=== PATIENT | female | born 1935 | race Caucasian/White ===

== ENCOUNTER → 2017-08-30 | Outpatient (CLI) | payer OTHER | LOC: HYPER 07-30 07:56 | DX: T81.31XA Disruption of external operation (surgical) wound, not elsewhere classified, initial encounter (principal); I10 Essential (primary) hypertension; I48.91 Unspecified atrial fibrillation; I87.2 Venous insufficiency (chronic) (peripheral); I74.9 Embolism and thrombosis of unspecified artery; L72.3 Sebaceous cyst; E03.9 Hypothyroidism, unspecified; L02.818 Cutaneous abscess of other sites; I89.0 Lymphedema, not elsewhere classified; L84 Corns and callosities; D64.9 Anemia, unspecified; M81.0 Age-related osteoporosis without current pathological fracture; K21.9 Gastro-esophageal reflux disease without esophagitis; M19.90 Unspecified osteoarthritis, unspecified site; M10.9 Gout, unspecified; Z79.01 Long term (current) use of anticoagulants; Y92.89 Other specified places as the place of occurrence of the external cause; Y83.8 Other surgical procedures as the cause of abnormal reaction of the patient, or of later complication, without mention of misadventure at the time of the procedure ==

== ENCOUNTER → 2017-10-11 | Outpatient (CLI) | payer OTHER | LOC: HYPER 07:02 | DX: T81.31XD Disruption of external operation (surgical) wound, not elsewhere classified, subsequent encounter (principal); L72.3 Sebaceous cyst; L73.2 Hidradenitis suppurativa; I89.0 Lymphedema, not elsewhere classified; I74.9 Embolism and thrombosis of unspecified artery; I87.2 Venous insufficiency (chronic) (peripheral); L84 Corns and callosities; E03.9 Hypothyroidism, unspecified; M81.0 Age-related osteoporosis without current pathological fracture; M10.9 Gout, unspecified; I10 Essential (primary) hypertension; I48.91 Unspecified atrial fibrillation; M19.90 Unspecified osteoarthritis, unspecified site; K21.9 Gastro-esophageal reflux disease without esophagitis; D64.9 Anemia, unspecified; F41.9 Anxiety disorder, unspecified; Z79.01 Long term (current) use of anticoagulants; Y83.8 Other surgical procedures as the cause of abnormal reaction of the patient, or of later complication, without mention of misadventure at the time of the procedure ==

== ENCOUNTER → 2017-11-26 | Outpatient (CLI) | payer OTHER | LOC: HYPER 07:02 | DX: T81.31XD Disruption of external operation (surgical) wound, not elsewhere classified, subsequent encounter (principal); L73.2 Hidradenitis suppurativa; L84 Corns and callosities; D64.9 Anemia, unspecified; E03.9 Hypothyroidism, unspecified; G47.33 Obstructive sleep apnea (adult) (pediatric); H91.90 Unspecified hearing loss, unspecified ear; I89.0 Lymphedema, not elsewhere classified; I74.9 Embolism and thrombosis of unspecified artery; I87.2 Venous insufficiency (chronic) (peripheral); I10 Essential (primary) hypertension; I48.91 Unspecified atrial fibrillation; K21.9 Gastro-esophageal reflux disease without esophagitis; M81.0 Age-related osteoporosis without current pathological fracture; M19.90 Unspecified osteoarthritis, unspecified site; M10.9 Gout, unspecified; F41.9 Anxiety disorder, unspecified; Z89.429 Acquired absence of other toe(s), unspecified side; Z85.42 Personal history of malignant neoplasm of other parts of uterus; Z79.01 Long term (current) use of anticoagulants; Y83.8 Other surgical procedures as the cause of abnormal reaction of the patient, or of later complication, without mention of misadventure at the time of the procedure ==

== ENCOUNTER → 2017-12-18 | Outpatient (CLI) | payer OTHER | LOC: HYPER 06:53 | DX: T81.31XD Disruption of external operation (surgical) wound, not elsewhere classified, subsequent encounter (principal); L73.2 Hidradenitis suppurativa; D64.9 Anemia, unspecified; E03.9 Hypothyroidism, unspecified; G47.33 Obstructive sleep apnea (adult) (pediatric); H91.90 Unspecified hearing loss, unspecified ear; I89.0 Lymphedema, not elsewhere classified; I74.9 Embolism and thrombosis of unspecified artery; I48.91 Unspecified atrial fibrillation; I10 Essential (primary) hypertension; I87.2 Venous insufficiency (chronic) (peripheral); K21.9 Gastro-esophageal reflux disease without esophagitis; L84 Corns and callosities; M19.90 Unspecified osteoarthritis, unspecified site; M10.9 Gout, unspecified; M81.0 Age-related osteoporosis without current pathological fracture; F41.9 Anxiety disorder, unspecified; Z79.01 Long term (current) use of anticoagulants; Z89.429 Acquired absence of other toe(s), unspecified side; Y83.8 Other surgical procedures as the cause of abnormal reaction of the patient, or of later complication, without mention of misadventure at the time of the procedure ==

== ENCOUNTER → 2018-01-15 | Outpatient (CLI) | payer OTHER | LOC: HYPER 06:39 | DX: T81.31XD Disruption of external operation (surgical) wound, not elsewhere classified, subsequent encounter (principal); L72.3 Sebaceous cyst; L84 Corns and callosities; L73.2 Hidradenitis suppurativa; D64.9 Anemia, unspecified; E03.9 Hypothyroidism, unspecified; G47.33 Obstructive sleep apnea (adult) (pediatric); I89.0 Lymphedema, not elsewhere classified; I74.9 Embolism and thrombosis of unspecified artery; I48.91 Unspecified atrial fibrillation; I10 Essential (primary) hypertension; I87.2 Venous insufficiency (chronic) (peripheral); K21.9 Gastro-esophageal reflux disease without esophagitis; M81.0 Age-related osteoporosis without current pathological fracture; M19.90 Unspecified osteoarthritis, unspecified site; M10.9 Gout, unspecified; F41.9 Anxiety disorder, unspecified; Z89.429 Acquired absence of other toe(s), unspecified side; Z79.01 Long term (current) use of anticoagulants; Y83.8 Other surgical procedures as the cause of abnormal reaction of the patient, or of later complication, without mention of misadventure at the time of the procedure ==

== ENCOUNTER → 2018-03-04 | Outpatient (CLI) | payer OTHER | LOC: HYPER 02-14 06:54 | DX: T81.31XA Disruption of external operation (surgical) wound, not elsewhere classified, initial encounter (principal); R21 Rash and other nonspecific skin eruption; L02.818 Cutaneous abscess of other sites; L73.2 Hidradenitis suppurativa; L84 Corns and callosities; L72.3 Sebaceous cyst; D64.9 Anemia, unspecified; E03.9 Hypothyroidism, unspecified; G89.18 Other acute postprocedural pain; G47.33 Obstructive sleep apnea (adult) (pediatric); I89.0 Lymphedema, not elsewhere classified; I74.9 Embolism and thrombosis of unspecified artery; I87.2 Venous insufficiency (chronic) (peripheral); I10 Essential (primary) hypertension; I48.0 Paroxysmal atrial fibrillation; I48.91 Unspecified atrial fibrillation; K21.9 Gastro-esophageal reflux disease without esophagitis; N17.9 Acute kidney failure, unspecified; M86.172 Other acute osteomyelitis, left ankle and foot; M19.90 Unspecified osteoarthritis, unspecified site; M81.0 Age-related osteoporosis without current pathological fracture; M10.9 Gout, unspecified; F41.9 Anxiety disorder, unspecified; Z79.01 Long term (current) use of anticoagulants; Z95.0 Presence of cardiac pacemaker; Z89.421 Acquired absence of other right toe(s); Z85.42 Personal history of malignant neoplasm of other parts of uterus; Y92.89 Other specified places as the place of occurrence of the external cause; Y83.8 Other surgical procedures as the cause of abnormal reaction of the patient, or of later complication, without mention of misadventure at the time of the procedure ==

== ENCOUNTER → 2018-04-04 | Outpatient (CLI) | payer OTHER | LOC: HYPER 03-28 09:06 | DX: T87.89 Other complications of amputation stump (principal); T81.89XD Other complications of procedures, not elsewhere classified, subsequent encounter; L02.818 Cutaneous abscess of other sites; L72.3 Sebaceous cyst; L73.2 Hidradenitis suppurativa; L84 Corns and callosities; D64.9 Anemia, unspecified; E03.9 Hypothyroidism, unspecified; G47.33 Obstructive sleep apnea (adult) (pediatric); H91.90 Unspecified hearing loss, unspecified ear; I89.0 Lymphedema, not elsewhere classified; I74.9 Embolism and thrombosis of unspecified artery; I87.2 Venous insufficiency (chronic) (peripheral); I48.2 Chronic atrial fibrillation; I48.91 Unspecified atrial fibrillation; K21.9 Gastro-esophageal reflux disease without esophagitis; N17.9 Acute kidney failure, unspecified; M86.172 Other acute osteomyelitis, left ankle and foot; M10.9 Gout, unspecified; M81.0 Age-related osteoporosis without current pathological fracture; M19.90 Unspecified osteoarthritis, unspecified site; F41.9 Anxiety disorder, unspecified; Z95.0 Presence of cardiac pacemaker; Z79.01 Long term (current) use of anticoagulants; Y83.5 Amputation of limb(s) as the cause of abnormal reaction of the patient, or of later complication, without mention of misadventure at the time of the procedure; Y83.8 Other surgical procedures as the cause of abnormal reaction of the patient, or of later complication, without mention of misadventure at the time of the procedure ==

== ENCOUNTER → 2018-05-03 | Outpatient (CLI) | payer OTHER | LOC: HYPER 08:17 | DX: T81.89XD Other complications of procedures, not elsewhere classified, subsequent encounter (principal); L98.492 Non-pressure chronic ulcer of skin of other sites with fat layer exposed; S30.81 Abrasion of abdomen, lower back, pelvis and external genitals; L73.2 Hidradenitis suppurativa; I10 Essential (primary) hypertension; I48.91 Unspecified atrial fibrillation; I89.0 Lymphedema, not elsewhere classified; L02.818 Cutaneous abscess of other sites; I74.9 Embolism and thrombosis of unspecified artery; I87.2 Venous insufficiency (chronic) (peripheral); N17.9 Acute kidney failure, unspecified; M86.172 Other acute osteomyelitis, left ankle and foot; I48.0 Paroxysmal atrial fibrillation; L84 Corns and callosities; E03.9 Hypothyroidism, unspecified; K21.9 Gastro-esophageal reflux disease without esophagitis; M81.0 Age-related osteoporosis without current pathological fracture; M19.90 Unspecified osteoarthritis, unspecified site; M10.9 Gout, unspecified; D64.9 Anemia, unspecified; G47.33 Obstructive sleep apnea (adult) (pediatric); G89.18 Other acute postprocedural pain; F41.9 Anxiety disorder, unspecified; Z79.01 Long term (current) use of anticoagulants; Z95.0 Presence of cardiac pacemaker; X58.XXXD Exposure to other specified factors, subsequent encounter; Y83.8 Other surgical procedures as the cause of abnormal reaction of the patient, or of later complication, without mention of misadventure at the time of the procedure ==

== ENCOUNTER → 2018-06-03 | Outpatient (CLI) | payer OTHER | LOC: HYPER 06:49 | DX: T81.89XD Other complications of procedures, not elsewhere classified, subsequent encounter (principal); L72.3 Sebaceous cyst; L73.2 Hidradenitis suppurativa; I10 Essential (primary) hypertension; I89.0 Lymphedema, not elsewhere classified; I74.9 Embolism and thrombosis of unspecified artery; I87.2 Venous insufficiency (chronic) (peripheral); I48.0 Paroxysmal atrial fibrillation; E03.9 Hypothyroidism, unspecified; M81.0 Age-related osteoporosis without current pathological fracture; M19.90 Unspecified osteoarthritis, unspecified site; M10.9 Gout, unspecified; K21.9 Gastro-esophageal reflux disease without esophagitis; G89.18 Other acute postprocedural pain; D64.9 Anemia, unspecified; M86.172 Other acute osteomyelitis, left ankle and foot; G47.30 Sleep apnea, unspecified; R53.1 Weakness; Z79.01 Long term (current) use of anticoagulants; Z95.0 Presence of cardiac pacemaker; Y83.8 Other surgical procedures as the cause of abnormal reaction of the patient, or of later complication, without mention of misadventure at the time of the procedure ==

== ENCOUNTER → 2019-01-02 | Outpatient (CLI) | payer OTHER | LOC: HYPER 08:21 | DX: L98.492 Non-pressure chronic ulcer of skin of other sites with fat layer exposed (principal); L72.3 Sebaceous cyst; L73.2 Hidradenitis suppurativa; I89.0 Lymphedema, not elsewhere classified; I87.2 Venous insufficiency (chronic) (peripheral); I10 Essential (primary) hypertension; I48.91 Unspecified atrial fibrillation; I48.0 Paroxysmal atrial fibrillation; I74.9 Embolism and thrombosis of unspecified artery; N17.9 Acute kidney failure, unspecified; L84 Corns and callosities; G47.30 Sleep apnea, unspecified; E03.9 Hypothyroidism, unspecified; E55.9 Vitamin D deficiency, unspecified; M81.0 Age-related osteoporosis without current pathological fracture; M10.9 Gout, unspecified; K21.9 Gastro-esophageal reflux disease without esophagitis; M19.90 Unspecified osteoarthritis, unspecified site; D64.9 Anemia, unspecified; R53.1 Weakness; R60.0 Localized edema; F41.9 Anxiety disorder, unspecified; Z89.411 Acquired absence of right great toe; Z95.0 Presence of cardiac pacemaker; Z79.01 Long term (current) use of anticoagulants ==

== ENCOUNTER → 2019-11-24 | Outpatient (CLI) | payer OTHER | LOC: HYPER 10:37 | PROVIDERS: ATTEND Emergency Medicine Emergency Medical Services | DX: L89.153 Pressure ulcer of sacral region, stage 3 (principal); L73.2 Hidradenitis suppurativa; R60.0 Localized edema; E03.9 Hypothyroidism, unspecified; E66.9 Obesity, unspecified; G47.33 Obstructive sleep apnea (adult) (pediatric); H91.90 Unspecified hearing loss, unspecified ear; I89.0 Lymphedema, not elsewhere classified; I87.2 Venous insufficiency (chronic) (peripheral); I48.0 Paroxysmal atrial fibrillation; I74.9 Embolism and thrombosis of unspecified artery; N17.9 Acute kidney failure, unspecified; R53.1 Weakness; I10 Essential (primary) hypertension; K21.9 Gastro-esophageal reflux disease without esophagitis; M86.8X7 Other osteomyelitis, ankle and foot; M81.0 Age-related osteoporosis without current pathological fracture; M19.90 Unspecified osteoarthritis, unspecified site; M10.9 Gout, unspecified; F41.9 Anxiety disorder, unspecified; Z79.01 Long term (current) use of anticoagulants; Z95.0 Presence of cardiac pacemaker; Z89.429 Acquired absence of other toe(s), unspecified side; Z85.42 Personal history of malignant neoplasm of other parts of uterus; Z68.37 Body mass index [BMI] 37.0-37.9, adult ==

== ENCOUNTER → 2019-12-15 | Outpatient (CLI) | payer OTHER | LOC: HYPER 10:48 | PROVIDERS: ATTEND Emergency Medicine Emergency Medical Services | DX: L89.153 Pressure ulcer of sacral region, stage 3 (principal); L73.2 Hidradenitis suppurativa; R60.0 Localized edema; I89.0 Lymphedema, not elsewhere classified; I87.2 Venous insufficiency (chronic) (peripheral); I48.0 Paroxysmal atrial fibrillation; I74.9 Embolism and thrombosis of unspecified artery; I10 Essential (primary) hypertension; N17.9 Acute kidney failure, unspecified; E03.9 Hypothyroidism, unspecified; E66.9 Obesity, unspecified; R53.1 Weakness; G47.33 Obstructive sleep apnea (adult) (pediatric); H91.90 Unspecified hearing loss, unspecified ear; K21.9 Gastro-esophageal reflux disease without esophagitis; M86.671 Other chronic osteomyelitis, right ankle and foot; M81.0 Age-related osteoporosis without current pathological fracture; M19.90 Unspecified osteoarthritis, unspecified site; M10.9 Gout, unspecified; F41.9 Anxiety disorder, unspecified; Z79.01 Long term (current) use of anticoagulants; Z68.31 Body mass index [BMI] 31.0-31.9, adult; Z95.0 Presence of cardiac pacemaker ==

== ENCOUNTER → 2020-01-05 | Outpatient (CLI) | payer OTHER | LOC: HYPER 10:13 | PROVIDERS: ATTEND Emergency Medicine Emergency Medical Services | DX: L89.153 Pressure ulcer of sacral region, stage 3 (principal); L73.2 Hidradenitis suppurativa; I89.0 Lymphedema, not elsewhere classified; I87.2 Venous insufficiency (chronic) (peripheral); I48.0 Paroxysmal atrial fibrillation; I74.9 Embolism and thrombosis of unspecified artery; N17.9 Acute kidney failure, unspecified; R53.1 Weakness; L84 Corns and callosities; E03.9 Hypothyroidism, unspecified; M81.0 Age-related osteoporosis without current pathological fracture; M19.90 Unspecified osteoarthritis, unspecified site; M10.9 Gout, unspecified; K21.9 Gastro-esophageal reflux disease without esophagitis; K58.9 Irritable bowel syndrome, unspecified; I10 Essential (primary) hypertension; I48.91 Unspecified atrial fibrillation; M86.671 Other chronic osteomyelitis, right ankle and foot; E66.8 Other obesity; G47.33 Obstructive sleep apnea (adult) (pediatric); F41.9 Anxiety disorder, unspecified; Z68.37 Body mass index [BMI] 37.0-37.9, adult; Z79.01 Long term (current) use of anticoagulants; Z95.0 Presence of cardiac pacemaker; Z89.411 Acquired absence of right great toe ==